=== PATIENT | male | born 1990 | race Two or more races ===

== ENCOUNTER 2022-06-23 20:50 | Emergency (ER) | payer SELFPAY ==
[~2022-06-23] VITALS: Ht 170.2 cm; Wt 75.0 kg
[2022-06-24 02:22] VITALS: BP 119/64
== END 2022-06-24 02:39 | disposition home or self-care (01) ==
LOC: ER 20:50
DX: T40.991A Poisoning by other psychodysleptics [hallucinogens], accidental (unintentional), initial encounter (principal); Y92.018 Other place in single-family (private) house as the place of occurrence of the external cause
CPT/HCPCS: 99283